=== PATIENT | male | born 1990 ===

== ENCOUNTER 2025-02-19 23:15 | Observation (INO) | payer BC, MEDICAID ==
[2025-02-19 23:35] LABS: BASOPHILS ABSOLUTE AUTO 0.0 x10^3/uL (0.0-0.2); BASOPHILS PERCENT AUTO 0.1 % (0.2-1.2); EOSINOPHILS ABSOLUTE AUTO 0.0 x10^3/uL (0.0-0.5); EOSINOPHILS PERCENT AUTO 0.4 % (0.0-4.0); IMMATURE GRAN ABSOLUTE AUTO 0.02 x10^3/uL (0.00-0.07); IMMATURE GRAN PERCENT AUTO 0.20 % (0.00-0.43); LYMPHOCYTES ABSOLUTE AUTO 2.5 x10^3/uL (1.0-4.8); LYMPHOCYTES PERCENT AUTO 31.1 % (25.0-50.0); MONOCYTES ABSOLUTE AUTO 0.3 x10^3/uL (0.0-0.8); MONOCYTES PERCENT AUTO 4.2 % (2.0-11.0); NEUTROPHILS ABSOLUTE AUTO 5.2 x10^3/uL (1.8-7.7); NEUTROPHILS PERCENT AUTO 64.0 % (50.0-80.0); PLATELET COUNT,PLT 366 x10^3/uL (130-400); RED BLOOD CELL COUNT 5.89 x10^6/uL (4.5-6.0); WHITE BLOOD CELL COUNT,WBC 8.1 x10^3/uL (4.0-10.0)
[2025-02-20 00:01] LABS: A/G RATIO 1.53; ALANINE AMINOTRANSFERASE,ALT 63 U/L (16-63); ASPARTATE AMNIOTRANSFERASE,AST 44 U/L (15-37); BILIRUBIN TOTAL 0.4 mg/dL (0.2-1.0); BLOOD UREA NITROGEN,BUN 8 mg/dL (7-18); CARBON DIOXIDE,CO2 26 mmol/L (21-32); CHLORIDE,CL 99 mmol/L (98-107); CREATININE 1.0 mg/dL (0.70-1.30); ESTIMATED GFR 100 mL/min (>=60); GLUCOSE RANDOM 160 mg/dL (70-99); POTASSIUM,K 3.6 mmol/L (3.5-5.1); PROTEIN TOTAL,TP 8.1 g/dL (6.4-8.2); SODIUM,NA 141 mmol/L (136-145)
[2025-02-20 00:02] LABS: ETHANOL BLOOD MEDICAL 413 mg/dL (0-3)
[2025-02-20] MEDS: Thiamine 200 MG/2 ML MDV IV SCH (00:03)
[2025-02-20 02:47] LABS: AMPHETAMINES SCREEN, URINE POSITIVE (NEGATIVE); BUPRENORPHINE SCREEN,URINE NEGATIVE (NEGATIVE); COCAINE METABOLITES,URINE NEGATIVE (NEGATIVE); METHADONE SCREEN, URINE NEGATIVE (NEGATIVE); METHAMPHETAMINE SCREEN, URINE NEGATIVE (NEGATIVE); OXYCODONE SCREEN,URINE NEGATIVE (NEGATIVE); PCP SCREEN,URINE NEGATIVE (NEGATIVE); THC SCREEN,URINE 50 NG/ML NEGATIVE (NEGATIVE)
[2025-02-20] MEDS: Sodium Chloride 0.9% 10 ML Syringe FLUSH PRN (03:50)
[2025-02-20 08:13] LABS: A/G RATIO 1.43; ALANINE AMINOTRANSFERASE,ALT 54.0 U/L (16-63); ASPARTATE AMNIOTRANSFERASE,AST 29.0 U/L (15-37); BILIRUBIN TOTAL 0.3 mg/dL (0.2-1.0); BLOOD UREA NITROGEN,BUN 6.0 mg/dL (7-18); CARBON DIOXIDE,CO2 26.0 mmol/L (21-32); CHLORIDE,CL 105.0 mmol/L (98-107); CREATININE 0.8 mg/dL (0.70-1.30); EST CRCL DRUG DOSING (CG) 140.11 mL/min; GLUCOSE RANDOM 152.0 mg/dL (70-99); POTASSIUM,K 3.9 mmol/L (3.5-5.1); PROTEIN TOTAL,TP 7.3 g/dL (6.4-8.2); SODIUM,NA 145.0 mmol/L (136-145)
[2025-02-20 08:15] LABS: ESTIMATED GFR 118.0 mL/min (>=60)
[2025-02-20] MEDS: buPROPion 150 MG Tab.ER PO SCH (11:52)
== END 2025-02-20 17:15 | disposition left against medical advice (07) ==
LOC: VM.ED 23:15 → VM.MS 02-20 00:50
PROVIDERS: ADMIT Family Medicine; ATTEND Family Medicine
DX: F10.921 Alcohol use, unspecified with intoxication delirium (principal); I10 Essential (primary) hypertension; E66.9 Obesity, unspecified; F31.70 Bipolar disorder, currently in remission, most recent episode unspecified; F90.9 Attention-deficit hyperactivity disorder, unspecified type; F41.1 Generalized anxiety disorder; K58.1 Irritable bowel syndrome with constipation; Z68.30 Body mass index [BMI] 30.0-30.9, adult; Z88.1 Allergy status to other antibiotic agents; Z79.899 Other long term (current) drug therapy; Y90.8 Blood alcohol level of 240 mg/100 ml or more
CPT/HCPCS: 36415; 51701; 80053; 80305; 80307; 82150; 83690; 83735; 84484; 85025; 93005; A9270; J2470; J3411; J7030; S5010; 93010; 99236-GT; 99284